=== PATIENT | male | born 1960 | race Caucasian/White ===

== ENCOUNTER 2024-08-04 08:26 | Day surgery (SDC) | payer OTHER ==
[~2024-08-04] VITALS: Ht 177.8 cm; Wt 93.9 kg
[~2024-08-04 08:26] MED LIST: NS 500 ML IV ONE
[2024-08-04] MEDS ORDERED: METF500 PO (08:55)
[2024-08-04] MEDS ORDERED: METO25ER PO (08:55)
[2024-08-04] MEDS ORDERED: OXYC5 PO (08:56)
[2024-08-04] MEDS ORDERED: ASPI81CH PO (08:56)
[2024-08-04] MEDS ORDERED: AMLO10 PO (08:57)
[2024-08-04] MEDS ORDERED: Aspir 8181 MG PO (08:57)
[2024-08-04] MEDS ORDERED: GABA300 PO (08:58)
[2024-08-04] MEDS ORDERED: LOSA50 PO (08:59)
[2024-08-04] MEDS ORDERED: MIRT15 (08:59)
[2024-08-04] MEDS ORDERED: TESTOSTERONE75 G1 TD (09:00)
[2024-08-04] MEDS ORDERED: CeFAZolin Sodium 2,000 MG VIAL ONE (09:16)
[2024-08-04] MEDS ORDERED: NS 500 ML IV ONE (09:23)
[2024-08-04] MEDS ORDERED: Dexamethasone Sod Phos 10 MG/ML 1ML VIAL ONE (09:51)
[2024-08-04] MEDS ORDERED: FentaNYL Citrate 50 MCG/ML 2 ML Injection ONE (09:51)
[2024-08-04] MEDS ORDERED: Ondansetron HCl 2 MG / ML 2ML Vial ONE (09:51)
[2024-08-04] MEDS ORDERED: propofoL 20 ML IV ONE (09:51)
[2024-08-04 10:23] VITALS: BP 130/63
== END 2024-08-04 10:55 | disposition home or self-care (01) ==
LOC: ORSCSDS 08:26
PROVIDERS: Orthopaedic Surgery
PROC: 01N54ZZ Release Median Nerve, Percutaneous Endoscopic Approach (ICD-10-PCS; principal; 2024-08-04 09:45)
PROC: 0LN70ZZ Release Right Hand Tendon, Open Approach (ICD-10-PCS; principal; 2024-08-04 09:45)
DX: G56.01 Carpal tunnel syndrome, right upper limb (principal); M65.321 Trigger finger, right index finger; M65.351 Trigger finger, right little finger; E11.9 Type 2 diabetes mellitus without complications; I21.9 Acute myocardial infarction, unspecified; J44.9 Chronic obstructive pulmonary disease, unspecified; I10 Essential (primary) hypertension; F41.9 Anxiety disorder, unspecified; K75.9 Inflammatory liver disease, unspecified; I25.2 Old myocardial infarction; F17.210 Nicotine dependence, cigarettes, uncomplicated; Z79.82 Long term (current) use of aspirin; Z79.899 Other long term (current) drug therapy
CPT/HCPCS: 82947; J0690; J1100; J2405; J2704; J3010; J7040

== ENCOUNTER 2024-08-25 07:39 | Day surgery (SDC) | payer OTHER ==
[~2024-08-25] VITALS: Ht 177.8 cm; Wt 93.8 kg
[~2024-08-25 07:39] MED LIST changes: +AMLO10 PO; +ASPI81CH PO; +Aspir 8181 MG PO; +GABA300 PO; +LOSA50 PO; +METF500 PO; +METO25ER PO; +MIRT15; +OXYC5 PO; +TESTOSTERONE75 G1 TD
[2024-08-25] MEDS ORDERED: CeFAZolin Sodium 2,000 MG VIAL ONE (08:14)
--- NOTE | 2024-08-25 08:22 | NUR ---
08/25/24 0885 QUINN BROWN MD, WILL DO LOCAL IN OR. MD AT BEDSIDE AT THIS TIME.
[2024-08-25] MEDS ORDERED: NS 1,000 ML IV ONE (08:36)
[2024-08-25] MEDS ORDERED: propofoL 20 ML IV ONE (08:57)
[2024-08-25] MEDS ORDERED: Midazolam HCl 1MG / ML 2ML Vial ONE (08:57)
[2024-08-25 09:26] VITALS: BP 113/66
--- NOTE | 2024-08-25 09:49 | NUR ---
08/25/[address] AT BEDSIDE
== END 2024-08-25 09:55 | disposition home or self-care (01) ==
LOC: ORSCSDS 07:39
PROVIDERS: Orthopaedic Surgery
PROC: 01N54ZZ Release Median Nerve, Percutaneous Endoscopic Approach (ICD-10-PCS; principal; 2024-08-25 09:00)
PROC: 0LN80ZZ Release Left Hand Tendon, Open Approach (ICD-10-PCS; principal; 2024-08-25 09:00)
DX: G56.02 Carpal tunnel syndrome, left upper limb (principal); M65.332 Trigger finger, left middle finger; I10 Essential (primary) hypertension; E11.9 Type 2 diabetes mellitus without complications; Z79.899 Other long term (current) drug therapy
CPT/HCPCS: 82947; J0690; J2250; J2704; J7040